=== PATIENT | female | born 1970 | race Caucasian/White ===

== ENCOUNTER 2017-01-14 10:42 | Emergency (ER) | payer MEDICAID ==
[~2017-01-14] VITALS: Ht 177.8 cm; Wt 72.6 kg
[2017-01-14 10:47] VITALS: BP 134/77
== END 2017-01-14 12:31 | disposition home or self-care (01) ==
LOC: ER 10:44
DX: S92.532A Displaced fracture of distal phalanx of left lesser toe(s), initial encounter for closed fracture (principal); W22.03XA Walked into furniture, initial encounter; Y93.89 Activity, other specified; Y92.89 Other specified places as the place of occurrence of the external cause; Y99.9 Unspecified external cause status
CPT/HCPCS: 73660; 99284; A4606; Z7610

== ENCOUNTER 2017-08-18 08:34 | Inpatient (IN) | payer MEDICAID ==
[~2017-08-18] VITALS: Ht 177.8 cm; Wt 68.0 kg
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
--- NOTE | 2017-08-18 09:04 | NUR ---
DR. SLOAN AT BEDSIDE
[2017-08-18 09:30] LABS: BASOPHILS % (AUTO) 0.3 % (0.0-2.0); EOSINOPHILS # (AUTO) 0.1 /CMM (0.0-0.7); EOSINOPHILS % (AUTO) 0.7 % (0.0-6.0); HEMATOCRIT 42 % (33-45); HEMOGLOBIN 14.9 g/dL (11.5-14.8); LYMPHOCYTES # (AUTO) 0.2 /CMM (0.8-4.8); LYMPHOCYTES % (AUTO) 2.6 % (20.0-44.0); MEAN CORPUSCULAR HEMOGLOBIN 30 PG (26.0-33.0); MEAN CORPUSCULAR HGB CONC 35 g/dl (31.0-36.0); MEAN CORPUSCULAR VOLUME 85 fL (82-100); MONOCYTES # (AUTO) 0.3 /CMM (0.1-1.30); MONOCYTES % (AUTO) 3.6 % (2.0-12.0); NEUTROPHILS # (AUTO) 7.5 /CMM (1.8-8.9); NEUTROPHILS % (AUTO) 92.8 % (43.0-81.0); PLATELET COUNT (AUTO) 220 /CMM (150-450); RDW COEFFICIENT OF VARIATION 12.3 (11.5-15.0); RED BLOOD CELL COUNT(AUTO) 4.98 MIL/uL (4.0-5.2); WHITE BLOOD COUNT (AUTO) 8.1 K/uL (4.3-11.0)
--- NOTE | 2017-08-18 09:30 | NUR ---
IV ACCESS STARTED. BLOOD DRAWN FOR LABS.
[2017-08-18 09:40] LABS: CREATININE 0.7 mg/dL (0.6-1.3); POTASSIUM 3.6 mmol/L (3.5-5.1)
[2017-08-18 09:41] LABS: APPEARANCE,URINE Clear (CLEAR); BILIRUBIN,URINE Negative (NEGATIVE); BLOOD, URINE Trace-intact Ery/uL (NEGATIVE); COLOR,URINE Yellow (YELLOW); KETONES,URINE 40 (NEGATIVE); LEUKOCYTE ESTERASE ,URINE Negative (NEGATIVE); NITRITE, URINE Negative (NEGATIVE); PROTEIN,URINE Trace mg/dl (NEGATIVE); UGLUCOSE Negative (NEGATIVE); UROBILINOGEN,URINE 0.2 EU/dL (0.2)
[2017-08-18 09:44] LABS: INR 0.92 (0.87-1.13)
[2017-08-18 09:50] LABS: BACTERIA,URINE Few /HPF (None Seen); SQUAMOUS EPITHELIAL CELL,UR Few /HPF (None Seen); WBC,URINE 0-3 /HPF (0-3)
[2017-08-18] MEDS ORDERED: IV NS 0.9% 1,000 ML BAG IV ONE (11:00)
[2017-08-18] MEDS ORDERED: DEXAMETHASONE SOD PHOSPHATE 4 MG/ML VIAL IV ONE (11:00)
[2017-08-18] MEDS ORDERED: DEXAMETHASONE SOD PHOSPHATE 10 MG/ML VIAL ONE (11:02)
--- NOTE | 2017-08-18 11:04 | NUR ---
PULLED OUT DECADRON 10MG. ADMINISTRED 4MG ONLY. WITNESSED BY ELICIA TORRES
--- NOTE | 2017-08-18 11:38 | NUR ---
CALLED , TRANSFERRED CALL TO
--- NOTE | 2017-08-18 13:05 | NUR ---
RECEIVED CALL FROM RAY WITH [facility], REQUESTED FAXED HIM FACESHEET, IMAGING RESULTS, LABS, AND ER NOTES. FAXED TO [phone]. PHONE TO REACH RAY IS [phone]
--- NOTE | 2017-08-18 13:48 | NUR ---
CALLED RAY WITH [facility] FOR AN UPDATE ON STATUS OF PT, HE GAVE ME VERBAL AUTHORIZATION TO ADMIT THE PT HERE.
--- NOTE | 2017-08-18 13:52 | NUR ---
TELE [phone]
--- NOTE | 2017-08-18 14:40 | NUR ---
[facility]
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
[2017-08-18 16:39] VITALS: BP 106/63
--- NOTE | 2017-08-18 16:39 | NUR ---
COMMERCIAL ENERGY AUDITOR NOTES DR. CASTELLANOS AT PT'S BEDSIDE, PLAN OF CARE DISCUSSED WITH PT, VERBALIZED UNDERSTANDING, ORDERS MADE AND CARRIED OUT.
[2017-08-18] MEDS ORDERED: ONDANSETRON HCL/PF 4 MG/2 ML VIAL IV PRN (17:00)
[2017-08-18] MEDS: DEXAMETHASONE SOD PHOSPHATE 10 MG/ML VIAL IV SCH (17:11)
[2017-08-18] MEDS: ACETAMINOPHEN 325 MG TABLET PO PRN (17:17)
--- NOTE | 2017-08-18 18:32 | NUR ---
ASPHALT PAVER NOTES PT IN BED, AWAKE, ALERT AND ORIENTED, PAIN MEDICATION GIVEN FOR HEADACHE, VERBALIZED RELIEF, AT BEDSIDE, TOLERATING CURRENT DIET WELL, NO COMPLAINT OF NAUSEA OR VOMITING, CALL LIGHT PLACED WITHIN REACH, ALL NEEDS ATTENDED.
--- NOTE | 2017-08-18 19:30 | NUR ---
RN NOTES RECEIVED PATIENT IN BED AWAKE, AO X 3, ABLE TO MAKE NEEDS KNOWN. NO ACUTE DISTRESS NOTED. DENIES ANY PAIN AT THIS TIME. SINUS RHYTHM ON MONITOR HR 73. IV SITE PATENT, INTACT; FLUSHED. SAFETY REMINDERS GIVEN. ON LOW BED WITH BILATERAL UPPER SIDE RAILS UP. CALL LAURENT WITHIN EASY REACH. WILL CONTINUE TO MONITOR.
[2017-08-18 20:00] VITALS: BP 94/63
[2017-08-18 20:45] VITALS: BP 94/63
[2017-08-19] VITALS: BP 94/47
[2017-08-19] MEDS: DEXAMETHASONE SOD PHOSPHATE 10 MG/ML VIAL IV SCH (00:26)
[2017-08-19 04:00] VITALS: BP 98/61
[2017-08-19 04:16] VITALS: BP 98/61
--- NOTE | 2017-08-19 06:23 | NUR ---
RN NOTES PATIENT ASLEEP, AROUSABLE. RESPIRATIONS EVEN. NO SIGNS OF PAIN NOTED. SINUS RHYTHM HR 61. DUE MED GIVEN WITH NO ASE NOTED. NEEDS ATTENDED. SAFETY PRECAUTIONS AND COMFORT MEASURES IN PLACE. WILL GIVE REPORT TO DAY SHIFT FOR CONTINUITY OF CARE.
[2017-08-19 07:05] VITALS: BP 106/68
--- NOTE | 2017-08-19 07:15 | NUR ---
CLIENT PROGRAM MANAGER/OPENING NOTES RECEIVED PT. IN BED A&OX4. TELE READING RHYTHM SINUS BRADYCARDIA 59 BPM. BREATHING UNLABORED, AND EVENLY ON ROOM AIR. NO S/S OF ACUTE DISTRESS. IV ACCESS ON RIGHT ANTECUBITAL SITE INTACT. BED IS IN LOWEST, AND LOCKED POSITION, 2 SIDE RAILS UP, AND INSTRUCTED PT. TO USE CALL LIGHT FOR ASSISTANCE. ALL NEEDS MET. WILL CONTINUE TO ASSESS AND MONITOR.
[2017-08-19 07:52] LABS: BASOPHILS % (AUTO) 0.1 % (0.0-2.0); HEMATOCRIT 37 % (33-45); HEMOGLOBIN 13.2 g/dL (11.5-14.8); LYMPHOCYTES # (AUTO) 0.5 /CMM (0.8-4.8); LYMPHOCYTES % (AUTO) 11.6 % (20.0-44.0); MEAN CORPUSCULAR HEMOGLOBIN 30 PG (26.0-33.0); MEAN CORPUSCULAR HGB CONC 36 g/dl (31.0-36.0); MEAN CORPUSCULAR VOLUME 86 fL (82-100); MONOCYTES # (AUTO) 0.2 /CMM (0.1-1.30); MONOCYTES % (AUTO) 4.1 % (2.0-12.0); NEUTROPHILS # (AUTO) 3.9 /CMM (1.8-8.9); NEUTROPHILS % (AUTO) 84.2 % (43.0-81.0); PLATELET COUNT (AUTO) 202 /CMM (150-450); RDW COEFFICIENT OF VARIATION 13.3 (11.5-15.0); RED BLOOD CELL COUNT(AUTO) 4.35 MIL/uL (4.0-5.2); WHITE BLOOD COUNT (AUTO) 4.6 K/uL (4.3-11.0)
[2017-08-19 08:00] VITALS: BP 102/56
[2017-08-19 08:07] LABS: ALBUMIN 3.6 g/dL (3.4-5.0); BILIRUBIN,TOTAL 0.2 mg/dL (0.2-1.0); CALCIUM, SERUM 8.8 mg/dL (8.5-10.1); CREATININE 0.7 mg/dL (0.6-1.3); POTASSIUM 4.1 mmol/L (3.5-5.1); TOTAL PROTEIN, SERUM 7.5 g/dL (6.4-8.2)
[2017-08-19] MEDS: ACETAMINOPHEN 325 MG TABLET PO PRN (12:50)
[2017-08-19 16:00] VITALS: BP_SYST 102; BP_SYST 105; BP_DIAS 56; BP_DIAS 67
--- NOTE | 2017-08-19 17:48 | NUR ---
HANDLE BENDER NOTES PT. LEFT IN MEDICALLY STABLE CONDITION WITH ALONG SIDE. PT. IS A&OX4. DISCHARGE INSTRUCTIONS, WITH EDUCATION WAS GIVEN, AND PT. VERBALIZED UNDERSTANDING. ID BAND, AND IV WAS RMOVED WITHOUT COMPLICATIONS. PT. WAS PROVIDED DR. HO'S CONTACT INFORMATION TO MAKE A FOLLOW UP APPOINTMENT, AND CASE MANAGEMENT DEPARTMENT CONTACT INFORMATION. ALL QUESTIONS ANSWERED. PT. LEFT WITH BELONGINGS, AND DISCHARGE PACKET.
== END 2017-08-19 17:45 | disposition home or self-care (01) | DRG 757 ==
LOC: ER 08:35 → TELE 14:20
PROVIDERS: ADMIT Internal Medicine; ATTEND Internal Medicine
DX: F04 Amnestic disorder due to known physiological condition (principal); F43.10 Post-traumatic stress disorder, unspecified; S00.03XA Contusion of scalp, initial encounter; W19.XXXA Unspecified fall, initial encounter; Y93.9 Activity, unspecified; Y92.002 Bathroom of unspecified non-institutional (private) residence as the place of occurrence of the external cause; Y92.410 Unspecified street and highway as the place of occurrence of the external cause; V49.49XA Driver injured in collision with other motor vehicles in traffic accident, initial encounter
CPT/HCPCS: 36415; 70450-TC; 71045-TC; 80048-TC; 80053-TC; 81000-TC; 84703-TC; 85025-TC; 85730-TC; 87081-TC; A4606; J1100; Z7610